=== PATIENT | female | born 1945 | race Caucasian/White ===

== ENCOUNTER → 2016-11-07 | Outpatient (CLI) | payer BC ==
[~2016-11-07] MED LIST: CELE100C PO; CZR50 PO; DILT240C9 PO; METR1GEL16 TOP; NORT50CA PO; OMEGCAP2 PO; RALO60TA12 PO; TRAM-10 PO; TRET0.1C42 TOP
--- NOTE | 2016-11-07 15:58 | MAMMOGRAPHY REPORT ---
BILATERAL DIGITAL SCREENING MAMMOGRAM WITH CAD: 11/07/2016 CLINICAL HISTORY: Routine screening. Patient has no complaints. TECHNIQUE: Current study was also evaluated with a Computer Aided Detection (CAD) system. Bilateral CC and MLO views were obtained. COMPARISON: Comparison is made to exams dated: 08/23/2015 mammogram, 08/23/2015 ultrasound biopsy, 2015 mammogram, 08/17/2015 ultrasound, 08/10/2015 mammogram, and 04/19/2014 mammogram - [facility]. BREAST COMPOSITION: The tissue of both breasts is heterogeneously dense, which may obscure small mas ses. FINDINGS: No suspicious masses, calcifications, or areas of architectural distortion are noted in ei ther breast. There has been no significant interval change compared to prior exams. Scattered bilate ral benign-appearing calcifications are not significantly changed. A biopsy marker clip is again not ed in the left medial breast. IMPRESSION: ACR BI-RADS CATEGORY 2: BENIGN There is no mammographic evidence of malignancy. A 1 year screening mammogram is recommended. The pa tient will receive written notification of the results. Approximately 10% of breast cancers are not detected with mammography. A negative mammographic report should not delay biopsy if a clinically suggestive mass is present. Ariadne Santana M.D. ah/:11/07/2016 12:40:51 Crab Butcher: Patti CAM(Bhavani)(M), [facility] letter sent: Normal 1/2 BI-RADS Code: ACR BI-RADS Category 2: Benign
== END | disposition home or self-care (01) ==
LOC: C.MAMM 11:45
PROVIDERS: ATTEND Nurse Practitioner Family
DX: Z12.31 Encounter for screening mammogram for malignant neoplasm of breast (principal)

== ENCOUNTER → 2017-04-15 | Outpatient (CLI) | payer BC ==
[~2017-04-15] MED LIST changes: -RALO60TA12 PO; +RALO60TA30 PO
--- NOTE | 2017-04-15 10:37 | DIAGNOSTIC IMAGING REPORT ---
L-SPINE MIN 4 VIEWS ROUTINE HISTORY: 71 years-old Female LOW BACK PAIN acute low back pain COMPARISON: Lumbar spine radiographs 08/26/2007 TECHNIQUE: 5 views of the lumbar spine FINDINGS: Progressively worsened anterolisthesis at L5-S1 8 mm, previously 4 mm. Additionally, there is progressively worsened intervertebral disc space narrowing at both the L2-L3 and L5-S1 levels which is now severe. Multilevel facet arthropathy and endplate spondylotic spurring. No acute fracture or compression deformity identified. Multilevel endplate spurring and intervertebral disc space narrowing of the imaged thoracic spine. No spondylolysis. Atherosclerosis of the aorta. Calcifications of the lower abdomen and pelvis suggest phleboliths. Moderate stool volume of the colon suggest constipation. IMPRESSION: 1. Progressively worsened degenerative changes of the lumbar spine as above includes severe intervertebral disc space narrowing at L2-L3 and L5-S1. 2. Progressively worsened anterolisthesis at L5-S1, now measuring 8 mm. This may be secondary to long-standing facet arthropathy. 3. No acute fracture identified. The above report was generated using voice recognition software. It may contain grammatical, syntax or spelling errors. Electronically signed by: Chris Petit M.D. 04/15/2017 10:36 AM Dictated Date/Time: 04/15/2017 10:31 AM
== END | disposition home or self-care (01) ==
LOC: C.RAD1850 10:14
PROVIDERS: ATTEND Family Medicine
DX: M54.5 Low back pain (principal); M47.816 Spondylosis without myelopathy or radiculopathy, lumbar region; M47.817 Spondylosis without myelopathy or radiculopathy, lumbosacral region; M51.36 Other intervertebral disc degeneration, lumbar region; M51.37 Other intervertebral disc degeneration, lumbosacral region

== ENCOUNTER → 2017-06-16 | Outpatient (CLI) | payer BC ==
--- NOTE | 2017-06-16 15:48 | DIAGNOSTIC IMAGING REPORT ---
LEFT KNEE 2 VIEWS CLINICAL HISTORY: Chronic left knee pain. FINDINGS: AP and lateral views of the left knee are compared to study dated 02/24/2006. The skeletal structures are osteopenic. A hinged left knee arthroplasty with long tibial and femoral stems is in near-anatomic alignment. The orthopedic hardware appears intact. No periprosthetic lucency is identified. There has been undersurface remodeling of the patella. No joint effusion is identified. The overlying soft tissues are within normal limits. IMPRESSION: 1. No acute bony abnormality is identified. 2. A left knee arthroplasty is in near-anatomic alignment as detailed above. There is no radiographic evidence of hardware complication. Electronically signed by: Ruy Porter M.D. 06/16/2017 3:46 PM Dictated Date/Time: 06/16/2017 3:45 PM
--- NOTE | 2017-06-16 16:10 | DIAGNOSTIC IMAGING REPORT ---
CERVICAL SPINE 5 VIEWS CLINICAL HISTORY: Right-sided neck pain. FINDINGS: AP, lateral, bilateral oblique, and odontoid views of the cervical spine are obtained. No prior studies are available for comparison at time of dictation. The skeletal structures are osteopenic. There is no radiographic evidence of fracture or subluxation involving the cervical spine. Vertebral body height is maintained throughout the cervical spine. There is minimal anterolisthesis at C4-C5. Minimal retrolisthesis is seen at C5-C6. Small anterior osteophytes are seen in the lower cervical region. The odontoid process and lateral masses appear intact as seen on the open-mouth view. The spinal laminar line is maintained. The atlantodental articulation appears maintained noting productive degenerative change with bony sclerosis and narrowing of the interval. There is advanced disc space narrowing at C5-C6 and C6-C7 with associated endplate sclerosis. Posterior disc osteophyte complexes at these levels likely contribute to acquired compromise of the central canal. Multilevel facet arthropathy is observed. Bilateral neural foraminal stenosis is suggested from C3-C4 through C6-C7 on the oblique views. The prevertebral soft tissues are normal as imaged. The partially visualized apical lung parenchyma appears clear. IMPRESSION: 1. No acute bony abnormality is identified involving the cervical spine. 2. Osteopenia and multilevel spondylosis as above. Dictated: 06/16/2017 4:04 PM Transcribed: 06/16/2017 4:09 PM [email or web address] Electronically signed by: Ruy Porter M.D. 06/16/2017 4:21 PM Dictated Date/Time: 06/16/2017 4:04 PM
== END | disposition home or self-care (01) ==
LOC: C.RAD1850 15:08
PROVIDERS: ATTEND Nurse Practitioner Family
DX: M85.88 Other specified disorders of bone density and structure, other site (principal); M47.892 Other spondylosis, cervical region; Z96.652 Presence of left artificial knee joint; M25.562 Pain in left knee

== ENCOUNTER 2017-10-01 16:27 | Emergency (ER) | payer BC ==
[2017-10-01 16:43] VITALS: Ht 160 cm
[2017-10-01] MEDS ORDERED: KETOROLAC TROMETHAMINE 60 MG/2 ML VIAL IM STA (17:05)
[2017-10-01] MEDS ORDERED: OXYCODONE HCL IR 5 MG TAB (IMMEDIATE RELEASE) PO STA (17:05)
--- NOTE | 2017-10-01 17:54 | DIAGNOSTIC IMAGING REPORT ---
CERVICAL SPINE W/O CT DOSE: 246.06 mGy.cm HISTORY: Pain. Neuropathy. necak pain eval for fx TECHNIQUE: Multiaxial CT images of the cervical spine were performed and reformatted in the sagittal and coronal plane without the use of contrast. A dose lowering technique was utilized adhering to the principles of ALARA. COMPARISON: 06/16/2017 FINDINGS: Unchanged exam. Reversal of normal cervical curvature with the apex at C4-C5 level. Considerable degenerative disc change from C5 through C7. No new or interval findings. Prevertebral soft tissues are unremarkable. Several cervical reactive nodes. IMPRESSION: Degenerative change. Muscle spasm. No acute process. The above report was generated using voice recognition software. It may contain grammatical, syntax or spelling errors. Electronically signed by: Orlando Matthews M.D. 10/01/2017 5:52 PM Dictated Date/Time: 10/01/2017 5:48 PM
[2017-10-01] MEDS ORDERED: OXYC-90 PO (18:25)
[2017-10-01 18:45] VITALS: BP 160/80; PULSE 82; TEMP 36.6; O2SAT 95
--- NOTE | 2017-10-01 22:21 | EMERGENCY ROOM VISIT NOTE ---
History Report prepared by Stefany: Ibis Ferreira Under the Supervision of: Dr. Tolu De La Rosa M.D. First contact with patient: 16:55 Chief Complaint: NECK PAIN Stated Complaint: PAIN IN NECK History of Present Illness The patient is a 72 year old female who presents to the Emergency Room with complaints of worsening neck pain since yesterday. She states she has experienced neck pain "for months", but yesterday it worsened. Yesterday her pain was located on the right, but this morning, it radiated into her left side as well. She rates her pain as a 10/10 in severity. The pain does radiate down to the level of her shoulders on both sides. Movement and laying down worsens her pain. She denies any recent trauma, falls or injuries. She did see her PCP yesterday, and was placed on Flexeril. She denies any recent fevers, chest pain or shortness of breath. She does take daily Losartan for a history of hypertension. She denies any numbness or weakness in her arms or legs. She has experienced no loss of control of her bowels or bladder. Source of History: patient Onset: yesterday Position: neck Symptom Intensity: 10/10 Timing: worsening Modifying Factors (Worsening): movement, other (laying down) Associated Symptoms: No fevers, No chest pain, No SOB, No weakness (in the arms or legs), No numbness (in the arms or legs) Review of Systems See HPI for pertinent positives & negatives. A total of 10 systems reviewed and were otherwise negative. Past Medical & Surgical Medical Problems: (1) No known health problems Family History Diabetes mellitus Heart disease Social History Smoking Status: Never Smoker Alcohol Use: none Drug Use: none Marital Status: Housing Status: lives with significant other Occupation Status: retired Current/Historical Medications Scheduled Celecoxib (Celebrex), 200 MG PO BID Diltiazem Hcl (Tiazac 240 Mg), 240 MG PO DAILY Losartan Potassium (Cozaar), 50 MG PO DAILY Metronidazole Hcl (Metrogel), 1 APPLN TOP DAILY Nortriptyline (Pamelor), 50 MG PO HS [place]-3 Fatty Acids (Fish Oil), 1 CAP PO DAILY Raloxifene Hcl (Evista), 60 MG PO DAILY Tretinoin (Tretinoin), 1 APPLN TOP HS Scheduled PRN Oxycodone Ir (Roxicodone Ir), 5 MG PO Q4H PRN for Pain Tramadol (Ultram), 50 MG PO Q8H PRN for Pain Allergies Coded Allergies: Miconazole (Unverified Allergy, Unknown, grant, 02/15/16) Physical Exam Vital Signs Date Time Temp Pulse Resp B/P (MAP) Pulse Ox O2 Delivery O2 Flow Rate FiO2 10/01/17 18:45 36.6 82 20 160/80 95 10/01/17 16:43 36.6 82 20 168/105 95 Room Air Physical Exam Constitutional: Vital signs reviewed. Eyes: Pupils are equal round reactive to light. Conjunctiva are noninjected. ENT: Pharynx is clear without erythema or exudate. Mucous membranes are moist. Mild tenderness to the cervical spine without step off or deformity. Respiratory: Clear to auscultation bilaterally. Breath sounds are equal bilaterally. Cardiovascular: Regular rate and rhythm. No rubs or gallops. GI: Soft, nondistended and nontender. Bowel sounds are present. Musculoskeletal: No peripheral edema. No lower extremity tenderness. Integumentary: No cyanosis. Neurological: The patient is awake and alert. No focal deficits. Motor and sensation are intact throughout all major nerve distributions of arms and intact in lower extremities. Psychiatric: Normal affect. Medical Decision & Procedures ER Provider Diagnostic Interpretation: Radiology results as stated below per my review and the radiologist's interpretation: CERVICAL SPINE W/O CT DOSE: 246.06 mGy.cm HISTORY: Pain. Neuropathy. necak pain eval for fx TECHNIQUE: Multiaxial CT images of the cervical spine were performed and reformatted in the sagittal and coronal plane without the use of contrast. A dose lowering technique was utilized adhering to the principles of ALARA. COMPARISON: 06/16/2017 FINDINGS: Unchanged exam. Reversal of normal cervical curvature with the apex at C4-C5 level. Considerable degenerative disc change from C5 through C7. No new or interval findings. Prevertebral soft tissues are unremarkable. Several cervical reactive nodes. IMPRESSION: Degenerative change. Muscle spasm. No acute process. The above report was generated using voice recognition software. It may contain grammatical, syntax or spelling errors. Electronically signed by: Orlando Matthews M.D. 10/01/2017 5:52 PM Medications Administered Medications (Trade) Dose Ordered Sig/Kwame Route Start Time Stop Time Status Last Admin Dose Admin Ketorolac Tromethamine (Toradol Inj) 10 mg NOW STAT IM 10/01/17 17:05 10/01/17 17:06 DC 10/01/17 17:41 10 MG Oxycodone HCl (Roxicodone Immediate Rel Tab) 5 mg NOW STAT PO 10/01/17 17:05 10/01/17 17:06 DC 10/01/17 17:41 5 MG ED Course 165: The patient was evaluated in room C9. A complete history and physical exam was performed. 1704: Oxycodone HCl 5 mg PO, Toradol 10 mg IM. 1814: I reevaluated the patient. I reviewed the CT results with the patient as well as her discharge instructions and she verbalized complete understanding and agreement. I also reviewed the side effects of Oxycodone with the patient. Medical Decision This is a 72-year-old female presents with neck pain. Differential diagnosis includes strain, torticollis, pathologic fracture, intervertebral disc disease, radiculopathy. I did perform a limited focused review of portions of the patient's old chart on the electronic medical record. The patient had a C-Spine X-ray for right sided neck pain in May 2017, which showed multi-lobar spondylosis, advanced disc-space narrowing in C5, C6 and C7, neural foraminal stenosis of C3, C4, C6 and C7. I did evaluate the patient as noted above. Patient is presenting with neck pain. Is initially on the right side but now it is on the left side. It does radiate to her shoulders. She has no neurologic deficits. She denies any chest pain or shortness of breath. Her symptoms seem most consistent with cervical radiculopathy. She was placed on Flexeril by her PCP. I did treat her with Toradol IM and oxycodone 1 tab p.o. I did order a CT of the cervical spine. I did review the images myself as well as the radiology report as described above. There is no evidence of acute fracture or change from her prior x-ray. I did discuss the test results with the patient. I did recommend follow-up with her doctor as well as orthopedic spine. She was given a prescription for oxycodone and advised to use it very sparingly and I did discuss potential side effects. She was discharged in good condition. [place] Drug Monitoring Program Search Results: patient reviewed within database, no issues identified Medication Reconcilliation Current Medication List: was personally reviewed by me Blood Pressure Screening Patient's blood pressure: Elevated blood pressure Blood pressure disposition: Referred to PCP Impression Primary Impression: Neck pain Scribe Attestation The scribe's documentation has been prepared under my direct and personally reviewed by me in its entirety. I confirm that the note above accurately reflects all work, treatment, procedures, and medical decision making performed by me. Departure Information Dispostion Home / Self-Care Prescriptions Oxycodone Ir (Roxicodone Ir) 5 Mg Tab 5 MG PO Q4H Y for Pain, #20 TAB Prov: Tolu De La Rosa M.D. 10/01/17 Referrals Michelle Mae (PCP) Patient Instructions ED Neck Pain No Trauma, My [facility] Additional Instructions You have been examined and treated today on an emergency basis only. This is not a substitute for, or an effort to provide, complete comprehensive medical care. It is impossible to recognize and treat all injuries or illnesses in a single emergency department visit. It is therefore important that you follow up closely with your physician and Dr. Salazar of orthopedic spine. Call as soon as possible for an appointment. Return for worsening symptoms or if you develop fever, vomiting, abdominal pain, loss of control of your bowel or bladder, numbness or weakness to your arms or legs, numbness to your private area, difficulty urinating, or any other concerning symptoms.
== END 2017-10-01 18:45 | disposition home or self-care (01) ==
LOC: C.EDB 16:28 → C.EDC 18:45
DX: M54.12 Radiculopathy, cervical region (principal); R03.0 Elevated blood-pressure reading, without diagnosis of hypertension; Z79.899 Other long term (current) drug therapy; Z88.8 Allergy status to other drugs, medicaments and biological substances

== ENCOUNTER → 2017-10-02 | Outpatient (CLI) | payer BC ==
[~2017-10-02] MED LIST changes: +OXYC-90 PO
--- NOTE | 2017-10-02 17:00 | DIAGNOSTIC IMAGING REPORT ---
THORACIC SPINE 3 VIEWS CLINICAL HISTORY: Thoracic back pain. FINDINGS: AP, lateral, and swimmer's views of the thoracic spine are compared to study dated 03/09/2013. The skeletal structures are osteopenic. There is no radiographic evidence of fracture or malalignment. Vertebral body height and alignment are maintained throughout the thoracic spine. Hyperkyphosis is observed. Small anterior osteophytes are seen throughout. The transverse processes and pedicles are grossly intact as seen on the frontal view. Multilevel degenerative disc space narrowing is noted with associated endplate sclerosis. The visualized lung parenchyma is grossly clear. IMPRESSION: 1. No acute osseous abnormality is seen involving the thoracic spine. 2. Osteopenia with degenerative change and hyperkyphosis as above. Electronically signed by: Ruy Porter M.D. 10/02/2017 4:58 PM Dictated Date/Time: 10/02/2017 4:57 PM
== END | disposition home or self-care (01) ==
LOC: C.RAD1850 16:38
PROVIDERS: ATTEND Family Medicine
DX: M54.6 Pain in thoracic spine (principal)